=== PATIENT | male | born 1950 | race Hispanic/Latino ===

== ENCOUNTER 2020-04-21 23:22 | Emergency (ER) | payer MEDICARE ==
[~2020-04-21 23:22] MED LIST: CLOP75TA32 PO; ENAL10TA18 PO; FINA5TAB41 PO; FLUT16H NASAL; ISOS30TA6 PO; METF-910 PO; METO25TA6 PO; ROSU10TA28 PO; TAMS0.4C32 PO
[2020-04-21 23:56] LABS: BASOPHILS % (AUTO) 0.3 % (0.0-5.0); EOSINOPHILS % (AUTO) 2.8 % (0.0-8.0); HEMATOCRIT 40.5 % (42-54); LYMPHOCYTES % (AUTO) 29.2 % (21.0-51.0); MEAN CORPUSCULAR HEMOGLOBIN 31.4 pg (27.0-33.0); MEAN CORPUSCULAR HGB CONC 34.6 g/dL (32.0-36.0); MEAN CORPUSCULAR VOLUME 90.8 fL (79-99); MONOCYTES % (AUTO) 11.3 % (3.0-13.0); NEUTROPHILS % (AUTO) 56.3 % (40.0-77.0); PLATELET COUNT (AUTO) 254 K/uL (130-400); RED BLOOD CELL COUNT(AUTO) 4.46 MIL/uL (4.50-6.20); RED CELL DISTRIBUTION WIDTH 12.2 % (11.0-15.5); WHITE BLOOD COUNT (AUTO) 8.9 K/uL (4.8-10.8)
[2020-04-22 00:14] LABS: INR 0.96 (0.85-1.15); PARTIAL THROMBOPLASTIN TIME 27.5 SEC (26.3-35.5); PROTHROMBIN TIME 10.4 SEC (9.6-11.6)
[2020-04-22 00:17] LABS: CREATININE 0.9 mg/dL (0.5-1.5); POTASSIUM 3.4 mmol/L (3.5-5.1)
[2020-04-22 00:22] LABS: ALBUMIN 3.7 g/dL (3.5-5.0); BILIRUBIN,TOTAL 0.2 mg/dL (0.2-1.0); TOTAL PROTEIN, SERUM 7.6 g/dL (6.0-8.3)
[2020-04-22] MEDS ORDERED: POTASSIUM CHLORIDE 20 MEQ ERTAB PO ONE (02:01)
== END 2020-04-22 02:09 | disposition home or self-care (01) ==
LOC: EDH 23:22
DX: I10 Essential (primary) hypertension (principal); M94.0 Chondrocostal junction syndrome [Tietze]; R07.89 Other chest pain; E11.9 Type 2 diabetes mellitus without complications
CPT/HCPCS: 36415; 71045; 80053; 84484; 85025; 85610; 85730; 93005

== ENCOUNTER 2021-10-20 01:51 | Inpatient (IN) | payer MEDICARE ==
[~2021-10-20] VITALS: Ht 167.6 cm; Wt 87.6 kg
[~2021-10-20 01:51] MED LIST changes: -ISOS30TA6 PO; +ISOS30TA92 PO
[2021-10-20 02:09] LABS: BASOPHILS % (AUTO) 0.4 % (0.0-5.0); EOSINOPHILS % (AUTO) 2.6 % (0.0-8.0); HEMATOCRIT 45.7 % (42-54); LYMPHOCYTES % (AUTO) 35.4 % (21.0-51.0); MEAN CORPUSCULAR HEMOGLOBIN 31.9 pg (27.0-33.0); MEAN CORPUSCULAR HGB CONC 33.9 g/dL (32.0-36.0); MONOCYTES % (AUTO) 12.9 % (3.0-13.0); NEUTROPHILS % (AUTO) 48.5 % (40.0-77.0); PLATELET COUNT (AUTO) 281 K/uL (130-400); RED BLOOD CELL COUNT(AUTO) 4.86 MIL/uL (4.50-6.20); RED CELL DISTRIBUTION WIDTH 12.9 % (11.0-15.5); WHITE BLOOD COUNT (AUTO) 9.5 K/uL (4.8-10.8)
[2021-10-20 02:20] LABS: POTASSIUM 3.8 mmol/L (3.5-5.1)
[2021-10-20 02:25] LABS: ALBUMIN 4.1 g/dL (3.5-5.0); BILIRUBIN,TOTAL 0.3 mg/dL (0.2-1.0); MAGNESIUM 1.9 mg/dL (1.80-2.40); TOTAL PROTEIN, SERUM 8.2 g/dL (6.0-8.3)
[2021-10-20] MEDS ORDERED: ASPIRIN 81MG CHEW TAB PO ONE ×2 (02:30→10:30)
[2021-10-20] MEDS ORDERED: NITROGLYCERIN 1GM OINT 1 INCH/1GM TD ONE (02:30)
[2021-10-20 02:37] LABS: B-TYPE NATRIURETIC PEPTIDE 14 pg/mL (0-100)
[2021-10-20] MEDS ORDERED: ONDANSETRON 4MG INJ IV PRN (05:30)
[2021-10-20] MEDS: NITROGLYCERIN 1GM OINT 1 INCH/1GM TD SCH ×3 (05:30→21:28)
[2021-10-20] MEDS ORDERED: LACTULOSE 20 GM/30 ML UDCUP PO PRN (05:30)
[2021-10-20] MEDS ORDERED: MORPHINE 2 MG SYG IV PRN (05:30)
[2021-10-20] MEDS ORDERED: NITROGLYCERIN 0.4 MG SL TAB SL PRN (05:30)
[2021-10-20] MEDS ORDERED: ACETAMINOPHEN 325 MG TAB PO PRN ×2 (05:30)
[2021-10-20] MEDS: METOPROLOL TARTRATE 25 MG TAB PO SCH ×2 (08:53→21:27)
[2021-10-20] MEDS ORDERED: ASPIRIN 81 MG EC TAB PO SCH (09:00)
[2021-10-20] MEDS ORDERED: ISOS120T14 PO (09:06)
[2021-10-20] MEDS ORDERED: SACU1TAB PO (09:06)
[2021-10-20] MEDS ORDERED: ATOR20TA65 PO (09:06)
[2021-10-20] MEDS ORDERED: GLIP-162 PO (09:06)
[2021-10-20] MEDS ORDERED: CARV6.25 PO (09:06)
[2021-10-20] MEDS ORDERED: RANO10005 PO (09:06)
[2021-10-20] MEDS ORDERED: VITAD50000 PO (09:06)
[2021-10-20] MEDS ORDERED: CLOPIDOGREL 300MG TAB PO ONE (10:30)
[2021-10-20 11:00] LABS: INR 1.04 (0.85-1.15); PROTHROMBIN TIME 11.3 SEC (9.6-11.6)
[2021-10-20 11:01] LABS: PARTIAL THROMBOPLASTIN TIME 29.5 SEC (26.3-35.5)
[2021-10-20] MEDS: HEPARIN 25,000 UNITS/250ML D5W 250 ML IV SCH (11:01)
[2021-10-20] MEDS ORDERED: LORAZEPAM 0.5 MG TABLET PO ONE ×2 (15:00→22:30)
[2021-10-20 16:00] VITALS: BP 149/72
[2021-10-20 18:03] LABS: APPEARANCE,URINE Clear (CLEAR); BILIRUBIN,URINE Negative (NEGATIVE); COLOR,URINE Yellow (YELLOW); GLUCOSE, URINE (UA) Negative (NEGATIVE); KETONES,URINE Negative (NEGATIVE); LEUKOCYTE ESTERASE ,URINE Trace (NEGATIVE); NITRATE,URINE Negative (NEGATIVE); OCCULT BLOOD,URINE Negative (NEGATIVE); PROTEIN,URINE Negative (NEGATIVE); UROBILINOGEN,URINE 0.2 mg/dL (0.2-1.0)
[2021-10-20 18:24] LABS: BACTERIA,URINE Few /HPF (None Seen); MUCUS,URINE Few LPF (None Seen); SQUAMOUS EPITHELIAL CELL,UR Few /HPF (0-2); WBC,URINE 0-1 /HPF (0-1)
[2021-10-20 19:43] VITALS: BP 142/86
[2021-10-20] MEDS: ATORVASTATIN 40 MG TABLET PO SCH (21:27)
[2021-10-21] VITALS (7 sets, daily range): BP systolic 121–144; BP diastolic 67–78
[2021-10-21 00:51] LABS: INR 1.01 (0.85-1.15)
[2021-10-21 00:53] LABS: PARTIAL THROMBOPLASTIN TIME 80.6 SEC (26.3-35.5)
[2021-10-21 04:13] LABS: HEMATOCRIT 41.3 % (42-54); MEAN CORPUSCULAR HEMOGLOBIN 31.2 pg (27.0-33.0); MEAN CORPUSCULAR HGB CONC 33.7 g/dL (32.0-36.0); MEAN CORPUSCULAR VOLUME 92.6 fL (79-99); RED BLOOD CELL COUNT(AUTO) 4.46 MIL/uL (4.50-6.20); RED CELL DISTRIBUTION WIDTH 12.6 % (11.0-15.5); WHITE BLOOD COUNT (AUTO) 9.7 K/uL (4.8-10.8)
[2021-10-21] MEDS: NITROGLYCERIN 1GM OINT 1 INCH/1GM TD SCH ×3 (05:35→20:55)
[2021-10-21] MEDS ORDERED: 0.9% NACL 500ML IV.SOLN 500 ML IV SCH (07:00)
[2021-10-21] MEDS: HEPARIN 25,000 UNITS/250ML D5W 250 ML IV SCH ×2 (07:36→16:39)
[2021-10-21 08:34] LABS: CHOLESTEROL 142 mg/dL (<200); HDL CHOLESTEROL 49 mg/dL (29-71); HEMOGLOBIN A1C 6.6 % (4.0-6.0); LDL DIRECT 82 mg/dL (0-99); TRIGLYCERIDES 123 mg/dL (30-200)
[2021-10-21] MEDS: ASPIRIN 81 MG EC TAB PO SCH (11:39)
[2021-10-21] MEDS: METOPROLOL TARTRATE 25 MG TAB PO SCH (11:39)
[2021-10-21] MEDS: CLOPIDOGREL 75MG TAB PO SCH (11:40)
[2021-10-21] MEDS: CARVEDILOL 6.25 MG TABLET PO SCH (20:54)
[2021-10-21] MEDS: SACUBITRIL/VALSARTAN 1 EACH TABLET PO SCH (20:54)
[2021-10-21] MEDS: ATORVASTATIN 40 MG TABLET PO SCH (20:54)
[2021-10-21] MEDS: RANOLAZINE 500 MG TAB.SR.12H PO SCH (20:55)
[2021-10-21] MEDS ORDERED: LORAZEPAM 0.5 MG TABLET PO ONE (21:00)
[2021-10-22 03:11] VITALS: BP 112/57
[2021-10-22 04:12] LABS: BASOPHILS % (AUTO) 0.3 % (0.0-5.0); EOSINOPHILS % (AUTO) 2.7 % (0.0-8.0); HEMATOCRIT 39.8 % (42-54); LYMPHOCYTES % (AUTO) 31.6 % (21.0-51.0); MEAN CORPUSCULAR HEMOGLOBIN 31.2 pg (27.0-33.0); MEAN CORPUSCULAR HGB CONC 33.2 g/dL (32.0-36.0); MEAN CORPUSCULAR VOLUME 94.1 fL (79-99); MONOCYTES % (AUTO) 11.5 % (3.0-13.0); NEUTROPHILS % (AUTO) 53.3 % (40.0-77.0); PLATELET COUNT (AUTO) 250 K/uL (130-400); RED BLOOD CELL COUNT(AUTO) 4.23 MIL/uL (4.50-6.20); RED CELL DISTRIBUTION WIDTH 12.9 % (11.0-15.5); WHITE BLOOD COUNT (AUTO) 8.9 K/uL (4.8-10.8)
[2021-10-22 04:39] LABS: POTASSIUM 3.6 mmol/L (3.5-5.1)
[2021-10-22] MEDS: NITROGLYCERIN 1GM OINT 1 INCH/1GM TD SCH ×3 (05:17→20:31)
[2021-10-22 06:30] VITALS: BP 130/50
[2021-10-22] MEDS: ASPIRIN 81 MG EC TAB PO SCH (08:45)
[2021-10-22] MEDS: TAMSULOSIN HCL 0.4 MG CAP.ER.24H PO SCH (08:45)
[2021-10-22] MEDS: CLOPIDOGREL 75MG TAB PO SCH (08:46)
[2021-10-22] MEDS: CARVEDILOL 6.25 MG TABLET PO SCH ×2 (08:46→20:30)
[2021-10-22] MEDS: SACUBITRIL/VALSARTAN 1 EACH TABLET PO SCH ×2 (08:46→20:30)
[2021-10-22] MEDS: RANOLAZINE 500 MG TAB.SR.12H PO SCH ×2 (08:47→20:30)
[2021-10-22 12:00] VITALS: BP 134/86
[2021-10-22] MEDS: LORAZEPAM 2 MG/ML 1 ML VIAL IVP SCH (12:03)
[2021-10-22] MEDS ORDERED: NITROGLYCERIN 50MG VIAL ONE (12:38)
[2021-10-22] MEDS ORDERED: IOHEXOL 350 MG/ML 100ML INFUS..BTL IV ONE (12:38)
[2021-10-22] MEDS ORDERED: IOHEXOL-350 50ML VIAL IV ONE (12:38)
[2021-10-22] MEDS ORDERED: HEPARIN 10,000 UNIT/10ML (1,000 UNIT/ML) VIAL ONE (12:38)
[2021-10-22] MEDS ORDERED: FENTANYL CITRATE PF 50 MCG/1 ML 2ML VIAL ONE (12:39)
[2021-10-22] MEDS ORDERED: MIDAZOLAM HCL 1 MG/ML 2ML VIAL ONE (12:39)
[2021-10-22] MEDS ORDERED: LIDOCAINE HCL 1% MDV 50ML VIAL ONE (12:39)
[2021-10-22 16:00] VITALS: BP 125/80
[2021-10-22 19:36] VITALS: BP 136/67
[2021-10-22] MEDS: ATORVASTATIN 40 MG TABLET PO SCH (20:30)
[2021-10-22 23:57] VITALS: BP 139/92
[2021-10-23 03:39] LABS: BASOPHILS % (AUTO) 0.2 % (0.0-5.0); EOSINOPHILS % (AUTO) 1.8 % (0.0-8.0); HEMATOCRIT 40.6 % (42-54); LYMPHOCYTES % (AUTO) 24.5 % (21.0-51.0); MEAN CORPUSCULAR HEMOGLOBIN 31.7 pg (27.0-33.0); MEAN CORPUSCULAR HGB CONC 34.5 g/dL (32.0-36.0); MEAN CORPUSCULAR VOLUME 92.1 fL (79-99); MONOCYTES % (AUTO) 10.1 % (3.0-13.0); NEUTROPHILS % (AUTO) 63.1 % (40.0-77.0); PLATELET COUNT (AUTO) 252 K/uL (130-400); RED BLOOD CELL COUNT(AUTO) 4.41 MIL/uL (4.50-6.20); RED CELL DISTRIBUTION WIDTH 12.5 % (11.0-15.5); WHITE BLOOD COUNT (AUTO) 9.4 K/uL (4.8-10.8)
[2021-10-23 03:47] LABS: CREATININE 0.8 mg/dL (0.5-1.5); POTASSIUM 3.8 mmol/L (3.5-5.1)
[2021-10-23 04:13] VITALS: BP 112/66
[2021-10-23] MEDS: NITROGLYCERIN 1GM OINT 1 INCH/1GM TD SCH ×3 (04:39→21:11)
[2021-10-23] MEDS: LORAZEPAM 2 MG/ML 1 ML VIAL IVP SCH (07:48)
[2021-10-23 08:46] VITALS: BP 139/74
[2021-10-23] MEDS: ASPIRIN 81 MG EC TAB PO SCH (08:54)
[2021-10-23] MEDS: SACUBITRIL/VALSARTAN 1 EACH TABLET PO SCH ×2 (08:55→21:08)
[2021-10-23] MEDS: TAMSULOSIN HCL 0.4 MG CAP.ER.24H PO SCH (08:55)
[2021-10-23] MEDS: RANOLAZINE 500 MG TAB.SR.12H PO SCH ×2 (08:55→21:11)
[2021-10-23] MEDS: CARVEDILOL 6.25 MG TABLET PO SCH ×2 (08:55→21:10)
[2021-10-23 12:06] VITALS: BP 127/74
[2021-10-23 16:00] VITALS: BP 131/97
[2021-10-23 19:36] VITALS: BP 143/78
[2021-10-23] MEDS: ATORVASTATIN 40 MG TABLET PO SCH (21:10)
[2021-10-23 23:52] VITALS: BP 137/75
[2021-10-24 04:07] LABS: HEMATOCRIT 40.2 % (42-54); MEAN CORPUSCULAR HEMOGLOBIN 31.4 pg (27.0-33.0); MEAN CORPUSCULAR HGB CONC 34.3 g/dL (32.0-36.0); MEAN CORPUSCULAR VOLUME 91.6 fL (79-99); RED BLOOD CELL COUNT(AUTO) 4.39 MIL/uL (4.50-6.20); RED CELL DISTRIBUTION WIDTH 12.6 % (11.0-15.5); WHITE BLOOD COUNT (AUTO) 9.3 K/uL (4.8-10.8)
[2021-10-24 04:18] LABS: INR 1.05 (0.85-1.15); PROTHROMBIN TIME 11.4 SEC (9.6-11.6)
[2021-10-24 04:19] LABS: PARTIAL THROMBOPLASTIN TIME 29.2 SEC (26.3-35.5)
[2021-10-24 04:25] LABS: ALBUMIN 3.2 g/dL (3.5-5.0); BILIRUBIN,TOTAL 0.4 mg/dL (0.2-1.0); POTASSIUM 3.8 mmol/L (3.5-5.1); TOTAL PROTEIN, SERUM 6.6 g/dL (6.0-8.3)
[2021-10-24 04:33] VITALS: BP 113/60
[2021-10-24] MEDS: NITROGLYCERIN 1GM OINT 1 INCH/1GM TD SCH ×3 (04:44→21:01)
[2021-10-24 06:34] VITALS: BP 131/60
[2021-10-24] MEDS: ASPIRIN 81 MG EC TAB PO SCH (07:59)
[2021-10-24] MEDS: CARVEDILOL 6.25 MG TABLET PO SCH ×3 (07:59→20:59)
[2021-10-24] MEDS: SACUBITRIL/VALSARTAN 1 EACH TABLET PO SCH ×2 (08:00→20:59)
[2021-10-24] MEDS: TAMSULOSIN HCL 0.4 MG CAP.ER.24H PO SCH (08:00)
[2021-10-24] MEDS: RANOLAZINE 500 MG TAB.SR.12H PO SCH ×2 (08:00→20:59)
[2021-10-24] MEDS ORDERED: EPINEPHRINE PF 1MG AMP 10 MG in 0.9% NACL 250ML 240 ML IV PRN (09:30)
[2021-10-24] MEDS ORDERED: NOREPINEPHRINE BITARTRATE 8 MG in 0.9% NACL 250ML 250 ML IV PRN (09:30)
[2021-10-24] MEDS ORDERED: AMINOCAPROIC ACID 5,000MG VIAL 15,000 MG in 0.9% NACL 500ML IV.SOLN 420 ML IV PRN (09:30)
[2021-10-24] MEDS ORDERED: BISACODYL 10 MG SUPP.RECT RC SCH (11:00)
[2021-10-24] MEDS: LORAZEPAM 2 MG/ML 1 ML VIAL IVP SCH (11:50)
[2021-10-24 11:51] VITALS: BP 156/74
[2021-10-24] MEDS ORDERED: CEFAZOLIN SODIUM 1 GM VIAL IVP PRN (15:00)
[2021-10-24 15:45] VITALS: BP 138/66
[2021-10-24 19:21] VITALS: BP 144/72
[2021-10-24] MEDS: ATORVASTATIN 40 MG TABLET PO SCH (20:59)
[2021-10-25] VITALS (45 sets, daily range): BP systolic 108–232; BP diastolic 45–102
[2021-10-25 04:03] LABS: BASOPHILS % (AUTO) 0.3 % (0.0-5.0); EOSINOPHILS % (AUTO) 2.1 % (0.0-8.0); HEMATOCRIT 41.2 % (42-54); LYMPHOCYTES % (AUTO) 23.4 % (21.0-51.0); MEAN CORPUSCULAR HEMOGLOBIN 31.1 pg (27.0-33.0); MEAN CORPUSCULAR HGB CONC 33.3 g/dL (32.0-36.0); MEAN CORPUSCULAR VOLUME 93.6 fL (79-99); MONOCYTES % (AUTO) 12.1 % (3.0-13.0); NEUTROPHILS % (AUTO) 61.7 % (40.0-77.0); PLATELET COUNT (AUTO) 242 K/uL (130-400); RED CELL DISTRIBUTION WIDTH 12.9 % (11.0-15.5); WHITE BLOOD COUNT (AUTO) 10.5 K/uL (4.8-10.8)
[2021-10-25 04:13] LABS: CREATININE 0.9 mg/dL (0.5-1.5)
[2021-10-25] MEDS: NITROGLYCERIN 1GM OINT 1 INCH/1GM TD SCH (06:07)
[2021-10-25] MEDS ORDERED: 0.9%NACL 1000ML 1,000 ML IV ONE (06:21)
[2021-10-25] MEDS: CARVEDILOL 6.25 MG TABLET PO SCH (06:24)
[2021-10-25] MEDS ORDERED: CEFAZOLIN SODIUM 1 GM VIAL ONE (07:05)
[2021-10-25] MEDS ORDERED: PAPAVERINE HCL 30 MG/ML 2ML VIAL ONE (07:05)
[2021-10-25] MEDS ORDERED: MIDAZOLAM HCL 1 MG/ML 2ML VIAL ONE (07:53)
[2021-10-25] MEDS ORDERED: PROTAMINE SULFATE 10 MG/ML 25ML VIAL IV ONE ×2 (07:57→11:25)
[2021-10-25] MEDS ORDERED: SODIUM BICARB 50MEQ 50ML VIAL 150 ML ONE (07:57)
[2021-10-25] MEDS ORDERED: AMINOCAPROIC ACID 5,000MG VIAL ONE (07:57)
[2021-10-25] MEDS ORDERED: LIDOCAINE PF 100MG/5ML (2%) SYRINGE 5ML ONE ×2 (07:57→07:58)
[2021-10-25] MEDS ORDERED: NOREPINEPHRINE BITARTRATE 1 MG/1 ML ML IV ONE (07:57)
[2021-10-25] MEDS ORDERED: HEPARIN 10,000 UNIT/10ML (1,000 UNIT/ML) VIAL ONE ×2 (07:57→09:44)
[2021-10-25] MEDS ORDERED: PROPOFOL 10 MG/ML 20ML VIAL IV ONE (07:57)
[2021-10-25] MEDS ORDERED: ESMOLOL HCL 10 MG/ML 10 ML VIAL ONE ×2 (07:57→08:00)
[2021-10-25] MEDS ORDERED: FENTANYL CITRATE PF 50 MCG/1 ML 20ML VIAL IJ ONE (07:57)
[2021-10-25] MEDS ORDERED: EPINEPHRINE PF 1MG AMP ONE (07:57)
[2021-10-25] MEDS ORDERED: SUCCINYLCHOLINE CHLORIDE 20 MG/ML 10 ML VIAL ONE (07:58)
[2021-10-25] MEDS ORDERED: ROCURONIUM 10MG/1ML SYR 10 MG/ML ML ONE ×2 (07:58→09:38)
[2021-10-25] MEDS ORDERED: AMIODARONE 150MG VIAL ONE (08:00)
[2021-10-25] MEDS ORDERED: ETOMIDATE 20MG VIAL ONE (08:00)
[2021-10-25] MEDS ORDERED: VASOPRESSIN 20 UNITS/ML 1ML VIAL ONE (08:01)
[2021-10-25 09:01] LABS: ABG BASE EXCESS -4.5 mmol/L (-2.0-3.0); ABG HCO3 19.9 mmol/L (21.0-28.0); ABG OXYGEN SATURATION 99.8 % (95.0-99.0); ABG PCO2 35 mmHg (35-48)
[2021-10-25 09:51] LABS: ABG BASE EXCESS -0.7 mmol/L (-2.0-3.0); ABG HCO3 24.2 mmol/L (21.0-28.0); ABG OXYGEN SATURATION 99.7 % (95.0-99.0); ABG PCO2 41 mmHg (35-48)
[2021-10-25] MEDS ORDERED: SODIUM BICARB 50MEQ 50ML VIAL 200 ML ONE (09:57)
[2021-10-25 10:25] LABS: ABG BASE EXCESS 6.2 mmol/L (-2.0-3.0); ABG HCO3 28.9 mmol/L (21.0-28.0); ABG OXYGEN SATURATION 99.7 % (95.0-99.0); ABG PCO2 35 mmHg (35-48)
[2021-10-25] MEDS ORDERED: ATROPINE 1MG SYG IVP ONE (11:02)
[2021-10-25 11:37] LABS: ABG BASE EXCESS -2.7 mmol/L (-2.0-3.0); ABG HCO3 20.8 mmol/L (21.0-28.0); ABG OXYGEN SATURATION 99.2 % (95.0-99.0); ABG PCO2 32 mmHg (35-48)
[2021-10-25] MEDS ORDERED: PROTAMINE SULFATE 10 MG/ML 5 ML VIAL ONE (11:44)
[2021-10-25] MEDS ORDERED: PROPOFOL 1000 MG/100 ML 100 ML IV PRN (12:00)
[2021-10-25] MEDS ORDERED: ALBUMIN (HUMAN) 5% 250 ML IV PRN (12:00)
[2021-10-25] MEDS ORDERED: AMINOCAPROIC ACID 5,000MG VIAL 15,000 MG in 0.9% NACL 250ML 250 ML IV SCH (12:00)
[2021-10-25] MEDS ORDERED: NITROGLYCERIN 50MG/D5W 250ML 250 BOT IV SCH (12:00)
[2021-10-25] MEDS ORDERED: 0.9% NACL 500ML IV.SOLN 500 ML IV SCH (12:00)
[2021-10-25] MEDS ORDERED: ONDANSETRON 4MG INJ IV PRN (12:00)
[2021-10-25] MEDS ORDERED: 0.9%NACL 10ML VIAL IVP PRN (12:00)
[2021-10-25] MEDS ORDERED: ACETAMINOPHEN 650 MG SUPPOSITORY RC PRN (12:00)
[2021-10-25] MEDS ORDERED: 0.9%NACL 1000ML 1,000 ML IV SCH (12:00)
[2021-10-25] MEDS ORDERED: DEXTROSE 50%-WATER 50 ML DISP.SYRIN IV PRN (12:00)
[2021-10-25] MEDS ORDERED: POTASSIUM PHOS 15 mMOL+NS250ML 250 ML IV PRN (12:00)
[2021-10-25] MEDS ORDERED: TRAMADOL HCL 50 MG TABLET PO PRN (12:00)
[2021-10-25] MEDS ORDERED: EPINEPHRINE PF 1MG AMP 10 MG in 0.9% NACL 250ML 240 ML IV PRN (12:00)
[2021-10-25] MEDS ORDERED: GLUCAGON 1MG KIT 1 MG ML IM PRN (12:00)
[2021-10-25] MEDS ORDERED: MORPHINE 2 MG SYG IV PRN ×2 (12:00→12:30)
[2021-10-25] MEDS ORDERED: NOREPINEPHRIN 4MG/NS 250ML 250 ML IV PRN (12:00)
[2021-10-25] MEDS ORDERED: INSULIN REGULAR, HUMAN 3ML 100 UNIT in 0.9%NACL 100ML 99 ML IV SCH ×2 (12:00)
[2021-10-25 13:00] LABS: ABG BASE EXCESS 0.2 mmol/L (-2.0-3.0); ABG HCO3 22.8 mmol/L (21.0-28.0); ABG PCO2 31 mmHg (35-48)
[2021-10-25 13:11] LABS: HEMATOCRIT 39.1 % (42-54); MEAN CORPUSCULAR HGB CONC 33.5 g/dL (32.0-36.0); MEAN CORPUSCULAR VOLUME 92.4 fL (79-99); RED BLOOD CELL COUNT(AUTO) 4.23 MIL/uL (4.50-6.20); RED CELL DISTRIBUTION WIDTH 12.8 % (11.0-15.5); WHITE BLOOD COUNT (AUTO) 17.5 K/uL (4.8-10.8)
[2021-10-25] MEDS: POTASSIUM CHLORIDE 20MEQ/100ML 100 ML IV PRN ×4 (13:20→20:07)
[2021-10-25 13:28] LABS: CREATININE 0.9 mg/dL (0.5-1.5); INR 1.11 (0.85-1.15); MAGNESIUM 1.4 mg/dL (1.80-2.40); PHOSPHORUS 2.9 mg/dL (2.5-4.9); POTASSIUM 3.5 mmol/L (3.5-5.1)
[2021-10-25 13:29] LABS: PARTIAL THROMBOPLASTIN TIME 25.5 SEC (26.3-35.5)
[2021-10-25] MEDS ORDERED: NICARDIPINE 25MG INJ 100 MG in DEXTROSE 5%-WATER 60 ML IV SCH (13:30)
[2021-10-25 14:07] LABS: ABG BASE EXCESS -5.4 mmol/L (-2.0-3.0); ABG HCO3 20.4 mmol/L (21.0-28.0); ABG OXYGEN SATURATION 89.5 % (95.0-99.0); ABG PCO2 41 mmHg (35-48)
[2021-10-25 14:10] LABS: ABG OXYGEN SATURATION 36.5 % (95.0-99.0); BASE EXCESS,VENOUS BLOOD GAS -4.6 (-2.0-3.0); HCO3,VENOUS BLOOD GAS 22.7 (21.0-28.0); PCO2,VENOUS BLOOD GAS 51 (35-48)
[2021-10-25] MEDS: MAGNESIUM 2GM PREMIX 50ML 50 ML IV PRN ×2 (14:38→20:06)
[2021-10-25] MEDS: SODIUM BICARB 50MEQ 50ML VIAL IV PRN ×2 (14:41→14:42)
[2021-10-25 15:09] LABS: ABG BASE EXCESS 7.7 mmol/L (-2.0-3.0); ABG HCO3 32.5 mmol/L (21.0-28.0); ABG OXYGEN SATURATION 91.2 % (95.0-99.0); ABG PCO2 47 mmHg (35-48)
[2021-10-25] MEDS: CALCIUM GLUC 1GM 1 GM in 0.9%NACL 50ML 50 ML IV PRN ×2 (15:13→16:21)
[2021-10-25 16:15] LABS: ABG BASE EXCESS 3.3 mmol/L (-2.0-3.0); ABG HCO3 27.7 mmol/L (21.0-28.0); ABG OXYGEN SATURATION 94.3 % (95.0-99.0); ABG PCO2 41 mmHg (35-48)
[2021-10-25] MEDS: CEFAZOLIN SODIUM 1 GM VIAL IV SCH (16:29)
[2021-10-25] MEDS: TRAMADOL HCL 50 MG TABLET PO PRN ×2 (16:30→17:08)
[2021-10-25 17:14] LABS: ABG BASE EXCESS 4.1 mmol/L (-2.0-3.0); ABG HCO3 28.9 mmol/L (21.0-28.0); ABG OXYGEN SATURATION 92.9 % (95.0-99.0); ABG PCO2 44 mmHg (35-48)
[2021-10-25] MEDS ORDERED: HYDROCODONE/ACETAMINOPHEN 5/325 MG TAB PO PRN (18:30)
[2021-10-25 19:50] LABS: MAGNESIUM 1.8 mg/dL (1.80-2.40); POTASSIUM 3.8 mmol/L (3.5-5.1)
[2021-10-25] MEDS: ACETAMINOPHEN 325 MG TAB PO PRN (19:53)
[2021-10-25] MEDS: HYDROCODONE/ACETAMINOPHEN 10/325 MG TAB PO PRN (23:36)
[2021-10-26] VITALS (43 sets, daily range): BP systolic 84–164; BP diastolic 46–82
[2021-10-26 00:53] LABS: MAGNESIUM 2.4 mg/dL (1.80-2.40); POTASSIUM 3.9 mmol/L (3.5-5.1)
[2021-10-26] MEDS: CEFAZOLIN SODIUM 1 GM VIAL IV SCH ×2 (00:57→07:20)
[2021-10-26] MEDS: POTASSIUM CHLORIDE 20MEQ/100ML 100 ML IV PRN (01:00)
[2021-10-26] MEDS: TRAMADOL HCL 50 MG TABLET PO PRN (01:09)
[2021-10-26] MEDS: ACETAMINOPHEN 325 MG TAB PO PRN (01:13)
[2021-10-26 03:52] LABS: HEMATOCRIT 37.7 % (42-54); MEAN CORPUSCULAR HEMOGLOBIN 32.3 pg (27.0-33.0); MEAN CORPUSCULAR VOLUME 95.2 fL (79-99); RED BLOOD CELL COUNT(AUTO) 3.96 MIL/uL (4.50-6.20); RED CELL DISTRIBUTION WIDTH 13.2 % (11.0-15.5); WHITE BLOOD COUNT (AUTO) 14.9 K/uL (4.8-10.8)
[2021-10-26 04:10] LABS: INR 1.08 (0.85-1.15); PROTHROMBIN TIME 11.7 SEC (9.6-11.6)
[2021-10-26 04:11] LABS: PARTIAL THROMBOPLASTIN TIME 27.6 SEC (26.3-35.5)
[2021-10-26 04:13] LABS: ABG BASE EXCESS 3.4 mmol/L (-2.0-3.0); ABG HCO3 28.2 mmol/L (21.0-28.0); ABG OXYGEN SATURATION 90.7 % (95.0-99.0); ABG PCO2 44 mmHg (35-48)
[2021-10-26 04:16] LABS: CREATININE 1.1 mg/dL (0.5-1.5); MAGNESIUM 2.3 mg/dL (1.80-2.40); PHOSPHORUS 4.5 mg/dL (2.5-4.9); POTASSIUM 4.4 mmol/L (3.5-5.1)
[2021-10-26] MEDS: HYDROCODONE/ACETAMINOPHEN 10/325 MG TAB PO PRN ×2 (07:20→12:18)
[2021-10-26] MEDS ORDERED: ASPIRIN 325MG EC TAB PO SCH (09:00)
[2021-10-26] MEDS: PANTOPRAZOLE 40 MG TAB DR PO SCH (09:01)
[2021-10-26] MEDS: FUROSEMIDE 20 MG TABLET PO SCH (16:08)
[2021-10-26] MEDS ORDERED: FUROSEMIDE 20MG VIAL IV ONE (18:20)
[2021-10-26] MEDS: INSULIN HUMULIN R 100 UNIT/ML 3ML SQ SCH (20:09)
[2021-10-26] MEDS: ATORVASTATIN 40 MG TABLET PO SCH (20:09)
[2021-10-26] MEDS: METOPROLOL TARTRATE 25 MG TAB PO SCH (20:09)
[2021-10-26] MEDS ORDERED: PANTOPRAZOLE 40 MG/VIAL IVP SCH (21:00)
[2021-10-26] MEDS ORDERED: ATORVASTATIN 20 MG TABLET PO SCH (21:00)
[2021-10-27] VITALS (16 sets, daily range): BP systolic 93–130; BP diastolic 51–86
[2021-10-27 03:49] LABS: HEMATOCRIT 33.1 % (42-54); MEAN CORPUSCULAR HEMOGLOBIN 31.7 pg (27.0-33.0); MEAN CORPUSCULAR HGB CONC 32.3 g/dL (32.0-36.0); MEAN CORPUSCULAR VOLUME 97.9 fL (79-99); RED BLOOD CELL COUNT(AUTO) 3.38 MIL/uL (4.50-6.20); RED CELL DISTRIBUTION WIDTH 13.3 % (11.0-15.5); WHITE BLOOD COUNT (AUTO) 13.5 K/uL (4.8-10.8)
[2021-10-27 04:04] LABS: CREATININE 1.1 mg/dL (0.5-1.5); POTASSIUM 3.8 mmol/L (3.5-5.1)
[2021-10-27 04:18] LABS: ABG HCO3 27.4 mmol/L (21.0-28.0); ABG OXYGEN SATURATION 90.3 % (95.0-99.0); ABG PCO2 42 mmHg (35-48)
[2021-10-27] MEDS: POTASSIUM CHLORIDE 20MEQ/100ML 100 ML IV PRN (05:12)
[2021-10-27] MEDS: INSULIN HUMULIN R 100 UNIT/ML 3ML SQ SCH ×4 (05:58→21:00)
[2021-10-27] MEDS: PANTOPRAZOLE 40 MG TAB DR PO SCH (08:03)
[2021-10-27] MEDS: FUROSEMIDE 20 MG TABLET PO SCH ×2 (08:04→16:24)
[2021-10-27] MEDS: ASPIRIN 81 MG EC TAB PO SCH (08:04)
[2021-10-27] MEDS: METOPROLOL TARTRATE 25 MG TAB PO SCH ×2 (08:04→22:07)
[2021-10-27] MEDS ORDERED: PROMETHAZINE HCL 25 MG TABLET PO PRN (09:00)
[2021-10-27] MEDS ORDERED: BISACODYL 10 MG SUPP.RECT RC ONE (09:00)
[2021-10-27] MEDS ORDERED: PROMETHAZINE HCL 25 MG SUPPOSITORY RC PRN (09:00)
[2021-10-27] MEDS: ENOXAPARIN SODIUM 30 MG/0.3 ML SQ SCH (11:33)
[2021-10-27] MEDS: TAMSULOSIN HCL 0.4 MG CAP.ER.24H PO SCH (11:49)
[2021-10-27] MEDS ORDERED: LACTULOSE 20 GM/30 ML UDCUP PO ONE (14:25)
[2021-10-27] MEDS: ATORVASTATIN 40 MG TABLET PO SCH (22:06)
[2021-10-28] VITALS: BP 117/63
[2021-10-28 04:00] VITALS: BP 134/63
[2021-10-28 04:28] LABS: BASOPHILS % (AUTO) 0.2 % (0.0-5.0); EOSINOPHILS % (AUTO) 1.6 % (0.0-8.0); HEMATOCRIT 29.3 % (42-54); MEAN CORPUSCULAR HEMOGLOBIN 31.5 pg (27.0-33.0); MEAN CORPUSCULAR HGB CONC 33.1 g/dL (32.0-36.0); MEAN CORPUSCULAR VOLUME 95.1 fL (79-99); NEUTROPHILS % (AUTO) 73.8 % (40.0-77.0); PLATELET COUNT (AUTO) 169 K/uL (130-400); RED BLOOD CELL COUNT(AUTO) 3.08 MIL/uL (4.50-6.20); RED CELL DISTRIBUTION WIDTH 13.1 % (11.0-15.5); WHITE BLOOD COUNT (AUTO) 11.2 K/uL (4.8-10.8)
[2021-10-28 04:56] LABS: ALBUMIN 2.3 g/dL (3.5-5.0); BILIRUBIN,TOTAL 0.6 mg/dL (0.2-1.0); POTASSIUM 3.5 mmol/L (3.5-5.1); TOTAL PROTEIN, SERUM 6.3 g/dL (6.0-8.3)
[2021-10-28] MEDS: INSULIN HUMULIN R 100 UNIT/ML 3ML SQ SCH ×4 (06:53→21:00)
[2021-10-28 07:00] VITALS: BP 127/65
[2021-10-28] MEDS ORDERED: POTASSIUM CHLORIDE 10% ELIXIR 20 MEQ/15 ML UDCUP PO PRN (08:30)
[2021-10-28] MEDS: POLYETHYLENE GLYCOL 3350 17 GM POWD.PACK PO SCH (09:00)
[2021-10-28] MEDS: METOPROLOL TARTRATE 25 MG TAB PO SCH ×2 (10:03→21:37)
[2021-10-28] MEDS: ASPIRIN 81 MG EC TAB PO SCH (10:03)
[2021-10-28] MEDS: FUROSEMIDE 20 MG TABLET PO SCH ×2 (10:03→16:56)
[2021-10-28] MEDS: PANTOPRAZOLE 40 MG TAB DR PO SCH (10:03)
[2021-10-28] MEDS: TAMSULOSIN HCL 0.4 MG CAP.ER.24H PO SCH (10:03)
[2021-10-28] MEDS: KCL 20 MEQ ERTAB PO PRN (10:04)
[2021-10-28] MEDS: ENOXAPARIN SODIUM 30 MG/0.3 ML SQ SCH (10:05)
[2021-10-28] MEDS: ACETAMINOPHEN 325 MG TAB PO PRN (10:05)
[2021-10-28 11:00] VITALS: BP_SYST 136; BP_SYST 141; BP_DIAS 47; BP_DIAS 96
[2021-10-28] MEDS: IPRATROPIUM/ALBUTEROL SULFATE 3 ML SOLUTION IH SCH ×3 (11:03→23:53)
[2021-10-28 16:00] VITALS: BP 119/65
[2021-10-28 19:15] VITALS: BP 106/54
[2021-10-28] MEDS: ATORVASTATIN 40 MG TABLET PO SCH (21:37)
[2021-10-28] MEDS: HYDROCODONE/ACETAMINOPHEN 10/325 MG TAB PO PRN (21:39)
[2021-10-29 00:15] VITALS: BP 105/57
[2021-10-29 03:15] VITALS: BP 125/67
[2021-10-29 04:36] LABS: HEMATOCRIT 28.5 % (42-54); MEAN CORPUSCULAR HEMOGLOBIN 31.9 pg (27.0-33.0); MEAN CORPUSCULAR HGB CONC 33.3 g/dL (32.0-36.0); MEAN CORPUSCULAR VOLUME 95.6 fL (79-99); RED BLOOD CELL COUNT(AUTO) 2.98 MIL/uL (4.50-6.20); WHITE BLOOD COUNT (AUTO) 9.1 K/uL (4.8-10.8)
[2021-10-29 04:54] LABS: CREATININE 0.8 mg/dL (0.5-1.5); POTASSIUM 3.5 mmol/L (3.5-5.1)
[2021-10-29] MEDS: KCL 20 MEQ ERTAB PO PRN ×2 (05:16→08:19)
[2021-10-29] MEDS: INSULIN HUMULIN R 100 UNIT/ML 3ML SQ SCH ×4 (06:03→20:46)
[2021-10-29] MEDS: IPRATROPIUM/ALBUTEROL SULFATE 3 ML SOLUTION IH SCH ×4 (06:30→23:18)
[2021-10-29 08:00] VITALS: BP 116/62
[2021-10-29] MEDS: TAMSULOSIN HCL 0.4 MG CAP.ER.24H PO SCH (08:17)
[2021-10-29] MEDS: METOPROLOL TARTRATE 25 MG TAB PO SCH ×2 (08:18→20:49)
[2021-10-29] MEDS: FUROSEMIDE 20 MG TABLET PO SCH ×2 (08:18→16:59)
[2021-10-29] MEDS: ASPIRIN 81 MG EC TAB PO SCH (08:18)
[2021-10-29] MEDS: PANTOPRAZOLE 40 MG TAB DR PO SCH (08:18)
[2021-10-29] MEDS: POLYETHYLENE GLYCOL 3350 17 GM POWD.PACK PO SCH (08:19)
[2021-10-29] MEDS: ENOXAPARIN SODIUM 30 MG/0.3 ML SQ SCH (08:19)
[2021-10-29] MEDS: ACETAMINOPHEN 325 MG TAB PO PRN (08:35)
[2021-10-29] MEDS ORDERED: ACETAMINOPHEN 325 MG TAB PO PRN (09:30)
[2021-10-29] MEDS: CLOPIDOGREL 75MG TAB PO SCH (09:37)
[2021-10-29 12:00] VITALS: BP 109/55
[2021-10-29] MEDS: TRAMADOL HCL 50 MG TABLET PO PRN ×2 (12:22→20:50)
[2021-10-29 16:00] VITALS: BP 112/60
[2021-10-29 19:15] VITALS: BP 114/64
[2021-10-29] MEDS: ATORVASTATIN 40 MG TABLET PO SCH (20:50)
[2021-10-30] VITALS (7 sets, daily range): BP systolic 105–130; BP diastolic 60–74
[2021-10-30 04:58] LABS: HEMATOCRIT 27.4 % (42-54); MEAN CORPUSCULAR HEMOGLOBIN 31.4 pg (27.0-33.0); MEAN CORPUSCULAR HGB CONC 32.5 g/dL (32.0-36.0); MEAN CORPUSCULAR VOLUME 96.8 fL (79-99); RED BLOOD CELL COUNT(AUTO) 2.83 MIL/uL (4.50-6.20); RED CELL DISTRIBUTION WIDTH 13.2 % (11.0-15.5)
[2021-10-30 05:16] LABS: CREATININE 0.8 mg/dL (0.5-1.5); POTASSIUM 3.8 mmol/L (3.5-5.1)
[2021-10-30] MEDS: IPRATROPIUM/ALBUTEROL SULFATE 3 ML SOLUTION IH SCH ×4 (07:11→23:11)
[2021-10-30] MEDS: INSULIN HUMULIN R 100 UNIT/ML 3ML SQ SCH ×4 (07:30→20:34)
[2021-10-30] MEDS: METOPROLOL SUCCINATE 25 MG TAB.SR.24H PO SCH (07:56)
[2021-10-30] MEDS: FUROSEMIDE 20 MG TABLET PO SCH ×2 (07:57→16:36)
[2021-10-30] MEDS: TRAMADOL HCL 50 MG TABLET PO PRN (07:57)
[2021-10-30] MEDS: ENOXAPARIN SODIUM 30 MG/0.3 ML SQ SCH (07:57)
[2021-10-30] MEDS: POLYETHYLENE GLYCOL 3350 17 GM POWD.PACK PO SCH (07:57)
[2021-10-30] MEDS: CLOPIDOGREL 75MG TAB PO SCH (07:58)
[2021-10-30] MEDS: ASPIRIN 81 MG EC TAB PO SCH (07:58)
[2021-10-30] MEDS: PANTOPRAZOLE 40 MG TAB DR PO SCH (07:58)
[2021-10-30] MEDS: KCL 20 MEQ ERTAB PO PRN (07:58)
[2021-10-30] MEDS: TAMSULOSIN HCL 0.4 MG CAP.ER.24H PO SCH (07:58)
[2021-10-30] MEDS ORDERED: TRAMADOL HCL 50 MG TABLET PO PRN (20:30)
[2021-10-30] MEDS ORDERED: LACTULOSE 20 GM/30 ML UDCUP PO PRN (20:30)
[2021-10-30] MEDS: ATORVASTATIN 40 MG TABLET PO SCH (20:44)
[2021-10-30] MEDS: DOCUSATE SODIUM 100 MG CAP PO SCH (20:44)
[2021-10-31 03:47] VITALS: BP 118/62
[2021-10-31 04:15] LABS: HEMATOCRIT 27.8 % (42-54); MEAN CORPUSCULAR HEMOGLOBIN 31.5 pg (27.0-33.0); MEAN CORPUSCULAR HGB CONC 33.1 g/dL (32.0-36.0); MEAN CORPUSCULAR VOLUME 95.2 fL (79-99); RED BLOOD CELL COUNT(AUTO) 2.92 MIL/uL (4.50-6.20); RED CELL DISTRIBUTION WIDTH 13.2 % (11.0-15.5); WHITE BLOOD COUNT (AUTO) 8.6 K/uL (4.8-10.8)
[2021-10-31 04:36] LABS: POTASSIUM 4.4 mmol/L (3.5-5.1)
[2021-10-31] MEDS: INSULIN HUMULIN R 100 UNIT/ML 3ML SQ SCH (06:06)
[2021-10-31] MEDS: IPRATROPIUM/ALBUTEROL SULFATE 3 ML SOLUTION IH SCH ×2 (06:47→11:15)
[2021-10-31 07:06] VITALS: BP 132/66
[2021-10-31] MEDS: ENOXAPARIN SODIUM 30 MG/0.3 ML SQ SCH (08:43)
[2021-10-31] MEDS: POLYETHYLENE GLYCOL 3350 17 GM POWD.PACK PO SCH (08:44)
[2021-10-31] MEDS: PANTOPRAZOLE 40 MG TAB DR PO SCH (08:44)
[2021-10-31] MEDS: FUROSEMIDE 20 MG TABLET PO SCH (08:44)
[2021-10-31] MEDS: DOCUSATE SODIUM 100 MG CAP PO SCH (08:44)
[2021-10-31] MEDS: TAMSULOSIN HCL 0.4 MG CAP.ER.24H PO SCH (08:44)
[2021-10-31] MEDS: ASPIRIN 81 MG EC TAB PO SCH (08:44)
[2021-10-31] MEDS: METOPROLOL SUCCINATE 25 MG TAB.SR.24H PO SCH (08:45)
[2021-10-31] MEDS: CLOPIDOGREL 75MG TAB PO SCH (08:45)
[2021-10-31] MEDS ORDERED: AEC81 PO (11:54)
[2021-10-31] MEDS ORDERED: PANT40TA54 PO (11:54)
[2021-10-31] MEDS ORDERED: CLOP75TA32 PO (11:54)
[2021-10-31] MEDS ORDERED: ATOR40TA69 PO (11:54)
[2021-10-31] MEDS ORDERED: FURO20TA6 PO (11:54)
[2021-10-31] MEDS ORDERED: METO-408 PO (11:54)
== END 2021-10-31 12:58 | disposition home or self-care (01) | DRG 233 ==
LOC: EDH 01:51 → OBSVTOIN 05:27 → EDHIP 05:27 → 2DH 14:43 → 2CV 10-25 07:41 → 2BH 10-26 05:21 → 2DH 10-27 17:59
PROVIDERS: ADMIT Hospitalist; ATTEND Hospitalist
PROC: 4A023N7 Measurement of Cardiac Sampling and Pressure, Left Heart, Percutaneous Approach (ICD-10-PCS; principal; 2021-10-22)
PROC: B2111ZZ Fluoroscopy of Multiple Coronary Arteries using Low Osmolar Contrast (ICD-10-PCS; 2021-10-22)
PROC: 06BQ4ZZ Excision of Left Saphenous Vein, Percutaneous Endoscopic Approach (ICD-10-PCS; 2021-10-25)
PROC: 5A1221Z Performance of Cardiac Output, Continuous (ICD-10-PCS; 2021-10-25)
PROC: 30233N1 Transfusion of Nonautologous Red Blood Cells into Peripheral Vein, Percutaneous Approach (ICD-10-PCS; 2021-10-25)
PROC: 03HY32Z Insertion of Monitoring Device into Upper Artery, Percutaneous Approach (ICD-10-PCS; 2021-10-25)
PROC: 4A133B1 Monitoring of Arterial Pressure, Peripheral, Percutaneous Approach (ICD-10-PCS; 2021-10-25)
PROC: 4A133J1 Monitoring of Arterial Pulse, Peripheral, Percutaneous Approach (ICD-10-PCS; 2021-10-25)
PROC: 02100Z9 Bypass Coronary Artery, One Artery from Left Internal Mammary, Open Approach (ICD-10-PCS; 2021-10-25 08:33)
PROC: 021209W Bypass Coronary Artery, Three Arteries from Aorta with Autologous Venous Tissue, Open Approach (ICD-10-PCS; 2021-10-25 08:33)
DX: I25.10 Atherosclerotic heart disease of native coronary artery without angina pectoris (principal); I21.4 Non-ST elevation (NSTEMI) myocardial infarction; J95.1 Acute pulmonary insufficiency following thoracic surgery; I50.22 Chronic systolic (congestive) heart failure; I25.5 Ischemic cardiomyopathy; I11.0 Hypertensive heart disease with heart failure; E11.9 Type 2 diabetes mellitus without complications; E66.9 Obesity, unspecified; N40.0 Benign prostatic hyperplasia without lower urinary tract symptoms; Z82.3 Family history of stroke; Z82.0 Family history of epilepsy and other diseases of the nervous system; Z82.49 Family history of ischemic heart disease and other diseases of the circulatory system; Z82.5 Family history of asthma and other chronic lower respiratory diseases; Z87.442 Personal history of urinary calculi; Z95.5 Presence of coronary angioplasty implant and graft; Z83.3 Family history of diabetes mellitus; Z20.822 Contact with and (suspected) exposure to COVID-19; Z79.899 Other long term (current) drug therapy; Z68.31 Body mass index [BMI] 31.0-31.9, adult; I44.7 Left bundle-branch block, unspecified; C61 Malignant neoplasm of prostate; E78.2 Mixed hyperlipidemia
CPT/HCPCS: 36415; 36600; 71045; 80048; 80053; 80061; 81001; 82435; 82550; 82803; 82947; 82948; 83036; 83605; 83735; 83880; 84100; 84132; 84295; 84484; 85018; 85025; 85027; 85347; 85610; 85730; 86850; 86900; 86901; 86923; 87635; 93005; 93306; 93356; 93458; 93880; 94002; 94010; 94640; 94664; 97039; 99156; 99157; 99291; A7048; C1894; G0378; J0171; J0282; J0330; J0461; J0610; J0690; J1644; J1650; J1815; J1940; J2001; J2060; J2250; J2405; J2440; J2704; J2720; J3010; J3475; J3480; J3490; J7030; J7040; J7060; J7120; P9034; Q9967

== ENCOUNTER → 2022-03-08 | Outpatient (CLI) | payer MEDICARE ==
[~2022-03-08] MED LIST changes: +AEC81 PO; +ATOR40TA69 PO; -ENAL10TA18 PO; -FINA5TAB41 PO; -FLUT16H NASAL; +FURO20TA6 PO; +GLIP-162 PO; -ISOS30TA92 PO; +METO-408 PO; -METO25TA6 PO; +PANT40TA54 PO; -ROSU10TA28 PO
== END | disposition home or self-care (01) ==
LOC: SHCH 11:19
PROVIDERS: ATTEND Internal Medicine Cardiovascular Disease
DX: I35.1 Nonrheumatic aortic (valve) insufficiency (principal); I25.5 Ischemic cardiomyopathy; I51.7 Cardiomegaly; I50.22 Chronic systolic (congestive) heart failure
CPT/HCPCS: 93306

== ENCOUNTER → 2023-10-02 | Outpatient (CLI) | payer MEDICARE | END | disposition home or self-care (01) | LOC: RAH 12:58 | PROVIDERS: ATTEND Internal Medicine Cardiovascular Disease | DX: I08.0 Rheumatic disorders of both mitral and aortic valves (principal); I50.42 Chronic combined systolic (congestive) and diastolic (congestive) heart failure | CPT/HCPCS: 93306 ==